=== PATIENT | female | born 1980 | race African-American/Black ===

== ENCOUNTER → 2016-11-02 | Outpatient (REF) | payer OTHER ==
[~2016-11-02] MED LIST: COLA100C PO; IBUP800T23 PO; NORC5TAB PO; PRENTAB16 PO
[2016-11-02 11:14] LABS: BASO # 0.1 K/mm3 (0.0-0.2); BASO % 1.3 % (0.0-1.0); EOS # 0.2 K/mm3 (0.0-0.50); EOS % 2.3 % (0.0-3.0); LARGE UNSTAINED CELL # 0.1 K/mm3 (0.0-0.4); LARGE UNSTAINED CELL % 1.6 % (0.0-4.0); LYMPH # 1.7 K/mm3 (1.5-4.5); LYMPH % 22.8 % (24.0-44.0); MEAN CORPUSCULAR HEMOGLOBIN 27.4 pg (27.0-33.0); MEAN CORPUSCULAR VOLUME 85.6 fl (80.0-96.0); MONO # 0.4 K/mm3 (0.0-0.8); MONO % 5.4 % (0.0-5.0); NEUTROPHILS # 4.7 K/mm3 (1.8-7.7); NEUTROPHILS % 66.6 % (36.0-66.0); PLATELET COUNT, AUTOMATED 245 k/mm3 (150-450); RED CELL DISTRIBUTION WIDTH 15.3 % (11.5-14.5); WHITE BLOOD COUNT 7.1 K/mm3 (4.0-10.0)
== END | disposition home or self-care (01) ==
LOC: M SFHCLERA 09:19
PROVIDERS: ATTEND Family Medicine
DX: F34.1 Dysthymic disorder (principal)
CPT/HCPCS: 84439; 84443; 85025; G0463

== ENCOUNTER → 2016-11-19 | Outpatient (CLI) | payer OTHER ==
[2016-11-19 18:19] LABS: BASO % 0.7 % (0.0-1.0); EOS # 0.1 K/mm3 (0.0-0.50); EOS % 1.8 % (0.0-3.0); LARGE UNSTAINED CELL # 0.1 K/mm3 (0.0-0.4); LARGE UNSTAINED CELL % 1.5 % (0.0-4.0); LYMPH # 1.4 K/mm3 (1.5-4.5); LYMPH % 26.2 % (24.0-44.0); MEAN CORPUSCULAR HEMOGLOBIN 27.7 pg (27.0-33.0); MEAN CORPUSCULAR HGB CONC 32.2 g/dl (32.0-36.5); MEAN CORPUSCULAR VOLUME 86.1 fl (80.0-96.0); MONO # 0.3 K/mm3 (0.0-0.8); MONO % 4.8 % (0.0-5.0); NEUTROPHILS # 3.4 K/mm3 (1.8-7.7); PLATELET COUNT, AUTOMATED 320 k/mm3 (150-450); RED CELL DISTRIBUTION WIDTH 13.8 % (11.5-14.5); WHITE BLOOD COUNT 5.2 K/mm3 (4.0-10.0)
[2016-11-19 18:51] LABS: ALBUMIN 4.7 GM/DL (3.2-5.2); ALBUMIN/GLOBULIN RATIO 1.31 (1.00-1.93); ALKALINE PHOSPHATASE 122 U/L (45-117); ALT/SGPT 16 U/L (12-78); ANION GAP 9 MEQ/L (8-16); AST/SGOT 14 U/L (15-37); BILIRUBIN,TOTAL 0.6 MG/DL (0.2-1.0); BLOOD UREA NITROGEN 13 MG/DL (7-18); CALCIUM LEVEL 9.1 MG/DL (8.5-10.1); CARBON DIOXIDE LEVEL 29 MEQ/L (21-32); CHLORIDE LEVEL 102 MEQ/L (98-107); CREATININE FOR GFR 0.87 MG/DL (0.55-1.02); GLOMERULAR FILTRATION RATE > 60.0 (>60); GLUCOSE, FASTING 73 MG/DL (70-105); POTASSIUM SERUM 4.4 MEQ/L (3.5-5.1); SODIUM LEVEL 140 MEQ/L (136-145); TOTAL PROTEIN 8.3 GM/DL (6.4-8.2)
[2016-11-19 19:37] LABS: FOLATE > 24.0 NG/ML; VITAMIN B12 LEVEL 788 PG/ML
[2016-11-19 21:29] LABS: ERYTHROCYTE SEDIMENTATION RATE 6 mm/hr (0-20)
[2016-11-22 11:18] LABS: ALBUMIN % 59.3 % (55.8-66.1)
[2016-11-22 11:28] LABS: ALBUMIN 4.92 GM/DL (3.29-5.55); GAMMA GLOBULIN % 17.7 % (11.1-18.8)
[2016-11-24 08:45] LABS: VITAMIN E LEVEL 8.3 mg/L (5.3-16.8)
== END | disposition home or self-care (01) ==
LOC: M LRY 11:15
PROVIDERS: ATTEND Psychiatry & Neurology Neurology
DX: G62.9 Polyneuropathy, unspecified (principal)

== ENCOUNTER → 2016-11-29 | Outpatient (REF) | payer OTHER | END | disposition home or self-care (01) | LOC: M SFHCLERA 11:40 | PROVIDERS: ATTEND Family Medicine | DX: Z01.419 Encounter for gynecological examination (general) (routine) without abnormal findings (principal); Z11.51 Encounter for screening for human papillomavirus (HPV); R87.610 Atypical squamous cells of undetermined significance on cytologic smear of cervix (ASC-US) ==

== ENCOUNTER → 2017-04-22 | Outpatient (CLI) | payer OTHER ==
[~2017-04-22] MED LIST changes: -COLA100C PO; +COLA100C5 PO; +IBUP1TAB7 PO; -IBUP800T23 PO; +NORC1TAB4 PO; -NORC5TAB PO
--- NOTE | 2017-04-22 15:43 | REP ---
Clinical: Pain primarily over the fourth digit. Technique: AP, lateral, bilateral oblique views right hand. Findings: The osseous structures and joint spaces are intact and normal. There is no evidence for acute fracture or dislocation. Surrounding soft tissues are unremarkable. No subcutaneous emphysema or radiodense foreign body. Impression: Age appropriate examination. No acute fracture or dislocation. Signed by Matt Vences MD 04/22/2017 03:34 P
== END ==
LOC: M LRY 14:12
PROVIDERS: ATTEND Family Medicine
DX: M79.641 Pain in right hand (principal)
CPT/HCPCS: 73130; G0463

== ENCOUNTER → 2017-05-19 | Outpatient (REF) | payer OTHER | LOC: M SFHCLERA 16:25 | PROVIDERS: ATTEND Family Medicine | DX: N91.2 Amenorrhea, unspecified (principal) ==

== ENCOUNTER → 2017-05-23 | Outpatient (CLI) | payer OTHER | LOC: M LRY 13:43 | PROVIDERS: ATTEND Family Medicine | DX: R19.06 Epigastric swelling, mass or lump (principal) ==

== ENCOUNTER → 2017-05-25 | Outpatient (CLI) | payer OTHER ==
--- NOTE | 2017-05-25 11:50 | REP ---
Ultrasound of the anterior abdominal wall at the umbilicus: Ultrasonography over the umbilicus and supraumbilical area is performed in the midline. In the midline there is no identifiable rectus abdominus muscle. The gap between the medial margins of the rectus abdominus muscle varies from 6-10 centimeters. Peritoneum and peristalsing bowel is identified within this gap, however, no anterior abdominal wall hernia is identified by ultrasound. Signed by Hugh Irvin MD 05/25/2017 11:42 A
== END ==
LOC: M RAD 09:14
PROVIDERS: ATTEND Family Medicine
DX: R19.06 Epigastric swelling, mass or lump (principal)

== ENCOUNTER → 2017-07-19 | Outpatient (REF) | payer OTHER | LOC: M SFHCLERA 11:22 | PROVIDERS: ATTEND Family Medicine | DX: R82.90 Unspecified abnormal findings in urine (principal) ==

== ENCOUNTER → 2017-07-20 | Outpatient (REF) | payer OTHER | LOC: M SFHCLERA 18:54 | PROVIDERS: ATTEND Family Medicine | DX: R82.90 Unspecified abnormal findings in urine (principal); N93.8 Other specified abnormal uterine and vaginal bleeding ==

== ENCOUNTER → 2017-09-27 | Outpatient (CLI) | payer OTHER ==
--- NOTE | 2017-09-27 10:51 | REP ---
Chest x-ray: Two views. History: Chest pain . Comparison study: No comparison study . Findings: The lungs are well inflated and free of infiltrate. The pleural angles are sharp. The heart size is normal. Pulmonary vasculature is not increased. No significant bony abnormality is seen. Impression: Negative chest x-ray. Signed by Derrell Kong MD 09/27/2017 10:43 A
== END ==
LOC: M LRY 10:09
PROVIDERS: ATTEND Nurse Practitioner Family
DX: R07.9 Chest pain, unspecified (principal)

== ENCOUNTER → 2017-10-03 | Outpatient (REF) | payer OTHER | LOC: M SFHCLERA 08:31 | PROVIDERS: ATTEND Family Medicine | DX: E01.0 Iodine-deficiency related diffuse (endemic) goiter (principal) ==

== ENCOUNTER → 2017-10-06 | Outpatient (CLI) | payer OTHER ==
--- NOTE | 2017-10-07 07:11 | REP ---
THYROID ULTRASOUND: CLINICAL: Thyromegaly by physical examination. TECHNIQUE: Real-time caal scale ultrasound examination using linear and curved array transducers. FINDINGS: Thyroid gland is mildly enlarged and heterogeneous without discrete cystic or nodule abnormality appreciated. The right lobe measures 5.2 x 2.3 x 1.9 cm. The isthmus measures 4.7 mm in width. The left lobe measures 6.1 x 2.2 x 1.9 cm. IMPRESSION: Enlarged mildly heterogeneous thyroid gland without discrete nodule or cyst. Signed by Matt Vences MD 10/08/2017 08:44 A
== END ==
LOC: M LRY 08:21
PROVIDERS: ATTEND Family Medicine
DX: E01.0 Iodine-deficiency related diffuse (endemic) goiter (principal)

== ENCOUNTER → 2017-10-06 | Outpatient (REF) | payer OTHER ==
[2017-10-06 13:09] LABS: FREE T4 1.08 NG/DL (0.76-1.46)
== END ==
LOC: M SFHCLERA 08:20
PROVIDERS: ATTEND Family Medicine
DX: E01.0 Iodine-deficiency related diffuse (endemic) goiter (principal)

== ENCOUNTER → 2018-02-16 | Outpatient (REF) | payer OTHER ==
[2018-02-16 19:15] LABS: FREE T4 1.17 NG/DL (0.76-1.46); THYROID STIMULATING HORMONE 0.324 uIU/ML (0.358-3.740)
== END ==
LOC: M SFHCLERA 13:54
DX: E04.9 Nontoxic goiter, unspecified (principal)